=== PATIENT | male | born 1940 | race Caucasian/White ===

== ENCOUNTER 2019-03-08 10:46 | Inpatient (IN) | payer MEDICARE, BC ==
[2019-03-08 11:13] LABS: WHITE BLOOD COUNT 1.6 10^3/ul (4.8-10.8)
[2019-03-08 11:13] LABS: ABNORMAL IP MESSAGE 1; HEMATOCRIT 31.6 % (42.0-52.0); HEMOGLOBIN 9.9 g/dl (14.0-18.0); MEAN CORPUSCULAR HEMOGLOBIN 28.9 pg (29.0-33.0); MEAN CORPUSCULAR HGB CONC 31.3 g/dl (32.0-37.0); MEAN CORPUSCULAR VOLUME 92.4 fl (82.0-101.0); MEAN PLATELET VOLUME 10.5 fl (7.4-10.4); PLATELET COUNT 289 10^3/UL (140-415); POSITIVE DIFF @See below; RED BLOOD COUNT 3.42 10^6/ul (4.70-6.10); RED CELL DISTRIBUTION WIDTH 14.9 % (11.5-14.5)
[2019-03-08] MEDS: SODIUM CHLORIDE 0.9% 1L BAG IV* (11:16)
[2019-03-08] MEDS: CEFEPIME 2GM/50 ML (PMX) 50 ML IVPB (11:17)
[2019-03-08 11:18] LABS: ADD MAN DIFF? YES
[2019-03-08 11:42] LABS: ALANINE AMINOTRANSFERASE 23 IU/L (13-69); ALBUMIN 3.1 g/dl (3.3-4.9); ALBUMIN/GLOBULIN RATIO 0.83; ALKALINE PHOSPHATASE 223 IU/L (42-121); ANION GAP 12 (5-13); ASPARTATE AMINO TRANSFERASE 49 IU/L (15-46); BILIRUBIN,INDIRECT 0.3 mg/dl (0-1.1); BILIRUBIN,TOTAL 0.3 mg/dl (0.2-1.3); BLOOD UREA NITROGEN 27 mg/dl (7-20); CALCIUM 9.3 mg/dl (8.4-10.2); CARBON DIOXIDE 20 mmol/L (21-31); CHLORIDE 105 mmol/L (97-110); CREATININE 1.07 mg/dl (0.61-1.24); GLUCOSE 189 mg/dl (70-220); POTASSIUM 4.1 mmol/L (3.5-5.1); SODIUM 137 mmol/L (135-144); TOTAL PROTEIN 6.8 g/dl (6.1-8.1)
[2019-03-08] MEDS: VANCOMYCIN 1 GM (PMX) 250 ML IVPB (11:47)
[2019-03-08 11:52] LABS: BAND NEUTROPHILS #M 0.4 10^3/ul (0.0-0.6); BAND NEUTROPHILS % (M) 31 % (0-4); BASOPHILS % (M) 2 % (0-2); BURR CELLS 1+ (0-0); GIANT THROMBO% (M) 7 % (0-0); LYMPHOCYTES #M 0.2 10^3/ul (0.8-2.9); LYMPHOCYTES % (M) 13 % (15-51); MONOCYTES % (M) 5 % (0-11); OVALOCYTES 2+ (0-0); PLATELET ESTIMATE NORMAL; POIKILOCYTOSIS 2+ (0-0); POLYCHROMASIA 1+ (0-0); SEG NEUT #M 0.8 10^3/ul (1.6-7.5); SEGMENTED NEUTROPHILS (M) % 49 % (39-77); SMUDGE%M 4 % (0-0)
[2019-03-08 11:54] LABS: TROPONIN-I 0.021 ng/ml (0.000-0.120)
[2019-03-08 12:02] LABS: INR 1.31; PROTIME 16.4 Sec (11.9-14.9); PT RATIO 1.3
[2019-03-08 12:03] LABS: PARTIAL THROMBOPLASTIN TIME 36.5 Sec (23.0-35.0)
[2019-03-08] MEDS ORDERED: ACETAMINOPHEN 325 MG TAB PO ×2 (13:00→16:30)
[2019-03-08] MEDS ORDERED: ACETAMINOPHEN 650 MG SUPP PR (16:30)
[2019-03-08] MEDS ORDERED: NACL 0.9% 3 ML SYG IV (16:30)
[2019-03-08] MEDS ORDERED: BISACODYL 10 MG SUPP PR (16:30)
[2019-03-08] MEDS ORDERED: ONDANSETRON 4 MG INJ IV (16:30)
[2019-03-08] MEDS ORDERED: NA PHOSPHATE/BIPHOS 133 ML ENEMA PR (16:30)
[2019-03-08] MEDS ORDERED: DOCUSATE SODIUM 100 MG CAP PO (16:30)
[2019-03-08] MEDS ORDERED: BISACODYL (EC) 5 MG TAB PO (16:30)
[2019-03-08] MEDS: DEXTROSE 5%-0.45% NACL 1,000 ML IV (16:57)
[2019-03-08] MEDS: METOCLOPRAMIDE 10 MG TAB PO (17:22)
[2019-03-08 17:33] LABS: LACTIC ACID 2.5 mmol/L (0.5-2.0)
[2019-03-08] MEDS: PANTOPRAZOLE (EC) 40 MG TAB PO (20:47)
[2019-03-08] MEDS: TAMSULOSIN (SR) 0.4 MG CAP PO (20:47)
[2019-03-08] MEDS: SUCRALFATE (100 MG/ML) 10ML CUP PO (20:47)
[2019-03-08] MEDS ORDERED: FAMOTIDINE 20 MG TAB PO (21:00)
[2019-03-09] MEDS: DEXTROSE 5%-0.45% NACL 1,000 ML IV ×2 (02:23→11:31)
[2019-03-09 06:23] LABS: ABNORMAL IP MESSAGE 1; HEMATOCRIT 25.5 % (42.0-52.0); HEMOGLOBIN 8.2 g/dl (14.0-18.0); MEAN CORPUSCULAR HEMOGLOBIN 28.6 pg (29.0-33.0); MEAN CORPUSCULAR HGB CONC 32.2 g/dl (32.0-37.0); MEAN CORPUSCULAR VOLUME 88.9 fl (82.0-101.0); MEAN PLATELET VOLUME 10.8 fl (7.4-10.4); PLATELET COUNT 227 10^3/UL (140-415); POSITIVE DIFF @See below; RED BLOOD COUNT 2.87 10^6/ul (4.70-6.10); RED CELL DISTRIBUTION WIDTH 14.7 % (11.5-14.5)
[2019-03-09 06:23] LABS: WHITE BLOOD COUNT 6.9 10^3/ul (4.8-10.8)
[2019-03-09 06:50] LABS: ADD MAN DIFF? YES
[2019-03-09 06:55] LABS: ALANINE AMINOTRANSFERASE 27 IU/L (13-69); ALBUMIN 2.1 g/dl (3.3-4.9); ALBUMIN/GLOBULIN RATIO 0.65; ALKALINE PHOSPHATASE 143 IU/L (42-121); ANION GAP 6 (5-13); ASPARTATE AMINO TRANSFERASE 33 IU/L (15-46); BILIRUBIN,INDIRECT 0.4 mg/dl (0-1.1); BILIRUBIN,TOTAL 0.4 mg/dl (0.2-1.3); BLOOD UREA NITROGEN 28 mg/dl (7-20); CALCIUM 8.1 mg/dl (8.4-10.2); CARBON DIOXIDE 24 mmol/L (21-31); CHLORIDE 106 mmol/L (97-110); CREATININE 0.73 mg/dl (0.61-1.24); GLUCOSE 185 mg/dl (70-220); PHOSPHORUS 3.4 mg/dl (2.5-4.9); POTASSIUM 3.4 mmol/L (3.5-5.1); SODIUM 136 mmol/L (135-144); TOTAL PROTEIN 5.3 g/dl (6.1-8.1)
[2019-03-09 08:08] LABS: HEMOGLOBIN A1C 6.4 % (0-5.9)
[2019-03-09] MEDS: SUCRALFATE (100 MG/ML) 10ML CUP PO ×3 (08:42→20:15)
[2019-03-09] MEDS: AMIODARONE 200 MG TAB PO (08:43)
[2019-03-09] MEDS: PANTOPRAZOLE (EC) 40 MG TAB PO ×2 (08:44→20:15)
[2019-03-09] MEDS: METOCLOPRAMIDE 10 MG TAB PO ×3 (08:44→17:27)
[2019-03-09] MEDS: DUTASTERIDE 0.5 MG CAP PO (08:44)
[2019-03-09] MEDS: ENOXAPARIN 30 MG/0.3 ML SYG SC (09:01)
[2019-03-09] MEDS: MEGESTROL (40 MG/ML) 10ML CUP PO (09:19)
[2019-03-09 11:07] LABS: ANISOCYTOSIS 3+ (0-0); BAND NEUTROPHILS #M 4.8 10^3/ul (0.0-0.6); BAND NEUTROPHILS % (M) 71 % (0-4); EOSINOPHILS % (M) 1 % (0-7); LYMPHOCYTES #M 0.6 10^3/ul (0.8-2.9); LYMPHOCYTES % (M) 9 % (15-51); METAMYELOCYTES %M 1 % (0-0); MONOCYTES % (M) 1 % (0-11); MYELOCYTES #M 0.1 10^3/ul (0.0-0.0); MYELOCYTES % (M) 2 % (0-0); PLATELET ESTIMATE NORMAL; POIKILOCYTOSIS 2+ (0-0); POLYCHROMASIA 3+ (0-0); SEG NEUT #M 1.4 10^3/ul (1.6-7.5); SEGMENTED NEUTROPHILS (M) % 15 % (39-77); SMUDGE%M 10 % (0-0)
[2019-03-09] MEDS: morphine 2 MG INJ IV (12:40)
[2019-03-09] MEDS: MAGNESIUM SULFATE 4 GM/100 ML 100 ML IVPB (12:48)
[2019-03-09] MEDS ORDERED: VANCOMYCIN IV PER PHARMACY XX (14:00)
[2019-03-09] MEDS: PIPER-TAZO 2.25 GM (PMX) 50 ML IVPB ×3 (14:22→23:50)
[2019-03-09] MEDS ORDERED: VANCOMYCIN 750 MG (PMX) 250 ML IVPB (15:00)
[2019-03-09] MEDS: VANCOMYCIN 750 MG (PMX) 250 ML IVPB (15:47)
[2019-03-09] MEDS: POTASSIUM CHLORIDE 20 MEQ POWDER FOR ORAL SOLN PO (17:27)
[2019-03-09] MEDS: POTASSIUM CHLORIDE 100 ML IVPB (18:14)
[2019-03-09] MEDS: TAMSULOSIN (SR) 0.4 MG CAP PO (20:15)
[2019-03-10 02:12] LABS: AADO2 Arterial 625.6 mmHg (7.0-24.0); Allen Test ACCEPTAB; Arterial Blood Gas Oxygen Sat 88.8 mmHG (95.0-100.0); Arterial COHb 0 % (0.0-3.0); Arterial Fraction of Oxyhgb 88.5 % (93.0-99.0); Arterial HCO3 18.8 mmol/L (22.0-26.0); Arterial MetHb 0.3 % (0.0-1.5); Arterial pCO2 30.1 mmhg (35-45); MODE MASK - NRB; Site Left Radial
[2019-03-10] MEDS ORDERED: VANCOMYCIN IV PER PHARMACY XX (03:30)
[2019-03-10] MEDS ORDERED: PIPER-TAZO 3.375 GM IV (PMX) 100 ML IVPB (03:30)
[2019-03-10 04:00] LABS: ADD MAN DIFF? NO
[2019-03-10 04:18] LABS: WHITE BLOOD COUNT 5.6 10^3/ul (4.8-10.8)
[2019-03-10 04:18] LABS: ABNORMAL IP MESSAGE 1; BASOPHILS % 0.4 % (0.0-2.0); HEMATOCRIT 25.6 % (42.0-52.0); HEMOGLOBIN 8.3 g/dl (14.0-18.0); LYMPHOCYTES # 0.3 10^3/ul (0.8-2.9); LYMPHOCYTES % 5.6 % (15.0-51.0); MEAN CORPUSCULAR HEMOGLOBIN 28.5 pg (29.0-33.0); MEAN CORPUSCULAR HGB CONC 32.4 g/dl (32.0-37.0); MONOCYTE # 0.2 10^3/ul (0.3-0.9); MONOCYTES % 3.8 % (0.0-11.0); NEUTROPHILS % 89.7 % (39.0-77.0); PLATELET COUNT 231 10^3/UL (140-415); POSITIVE DIFF @See below; RED BLOOD COUNT 2.91 10^6/ul (4.70-6.10); RED CELL DISTRIBUTION WIDTH 14.7 % (11.5-14.5)
[2019-03-10 04:26] LABS: ANION GAP 8 (5-13); BLOOD UREA NITROGEN 26 mg/dl (7-20); CALCIUM 8.5 mg/dl (8.4-10.2); CARBON DIOXIDE 20 mmol/L (21-31); CHLORIDE 108 mmol/L (97-110); CREATININE 0.69 mg/dl (0.61-1.24); GLUCOSE 88 mg/dl (70-220); MAGNESIUM 2.3 mg/dl (1.7-2.5); POTASSIUM 3.1 mmol/L (3.5-5.1); SODIUM 136 mmol/L (135-144)
[2019-03-10 04:26] LABS: PHOSPHORUS 3.7 mg/dl (2.5-4.9)
[2019-03-10 04:44] LABS: FREE T4 (FREE THYROXINE) 1.61 ng/dl (0.85-1.93)
[2019-03-10 04:58] LABS: TRIIODOTHYRONINE 0.33 ng/ml (0.97-1.69)
[2019-03-10] MEDS: PIPER-TAZO 2.25 GM (PMX) 50 ML IVPB ×3 (05:35→20:00)
[2019-03-10 07:10] LABS: ANISOCYTOSIS 1+ (0-0); BAND NEUTROPHILS #M 2.8 10^3/ul (0.0-0.6); BAND NEUTROPHILS % (M) 50 % (0-4); BURR CELLS 2+ (0-0); LYMPHOCYTES #M 0.3 10^3/ul (0.8-2.9); LYMPHOCYTES % (M) 7 % (15-51); OVALOCYTES 1+ (0-0); PLATELET ESTIMATE NORMAL; POIKILOCYTOSIS 2+ (0-0); POLYCHROMASIA 3+ (0-0); SEG NEUT #M 2.6 10^3/ul (1.6-7.5); SEGMENTED NEUTROPHILS (M) % 43 % (39-77); SMUDGE%M 3 % (0-0)
[2019-03-10] MEDS: DEXTROSE 5%-0.45% NACL 1,000 ML IV (08:23)
[2019-03-10] MEDS: SUCRALFATE (100 MG/ML) 10ML CUP PO ×3 (08:51→20:02)
[2019-03-10] MEDS: MEGESTROL (40 MG/ML) 10ML CUP PO (08:51)
[2019-03-10] MEDS: POTASSIUM CHLORIDE 20 MEQ POWDER FOR ORAL SOLN PO (08:51)
[2019-03-10] MEDS: AMIODARONE 200 MG TAB PO (08:52)
[2019-03-10] MEDS: DUTASTERIDE 0.5 MG CAP PO (08:52)
[2019-03-10] MEDS: PANTOPRAZOLE (EC) 40 MG TAB PO ×2 (08:52→20:03)
[2019-03-10] MEDS: METOCLOPRAMIDE 10 MG TAB PO ×3 (08:53→17:05)
[2019-03-10] MEDS: ENOXAPARIN 30 MG/0.3 ML SYG SC (09:22)
[2019-03-10 10:25] LABS: AADO2 Arterial 636.5 mmHg (7.0-24.0); Allen Test ACCEPTAB; Arterial Base Excess -8.3 mmol/L (-3.0-3); Arterial Blood Gas Oxygen Sat 82.4 mmHG (95.0-100.0); Arterial COHb 0.4 % (0.0-3.0); Arterial HCO3 15.9 mmol/L (22.0-26.0); Arterial MetHb 0.1 % (0.0-1.5); MODE MASK - NRB; Site Right Radial
[2019-03-10] MEDS ORDERED: DIPHENHYDRAMINE 50 MG INJ (10:28)
[2019-03-10] MEDS: DIPHENHYDRAMINE 50 MG INJ IV (10:51)
[2019-03-10] MEDS: POTASSIUM CHLORIDE 100 ML IVPB ×2 (10:51→12:04)
[2019-03-10] MEDS: morphine 2 MG INJ IV ×2 (13:29→17:40)
[2019-03-10 14:21] LABS: AADO2 Arterial 622.9 mmHg (7.0-24.0); Allen Test ACCEPTAB; Arterial Base Excess -9.2 mmol/L (-3.0-3); Arterial Blood Gas Oxygen Sat 91.4 mmHG (95.0-100.0); Arterial COHb 0.1 % (0.0-3.0); Arterial Fraction of Oxyhgb 91.3 % (93.0-99.0); Arterial HCO3 14.7 mmol/L (22.0-26.0); Arterial MetHb 0 % (0.0-1.5); Arterial pCO2 25.8 mmhg (35-45); MODE HFNC; Site Right Radial
[2019-03-10] MEDS: VANCOMYCIN 500 MG (PMX) 100 ML IVPB (15:17)
[2019-03-10 19:20] LABS: AADO2 Arterial 611.5 mmHg (7.0-24.0); Allen Test ACCEPTAB; Arterial Base Excess -9.3 mmol/L (-3.0-3); Arterial Blood Gas Oxygen Sat 90.8 mmHG (95.0-100.0); Arterial COHb 0.3 % (0.0-3.0); Arterial Fraction of Oxyhgb 90.3 % (93.0-99.0); Arterial HCO3 16.1 mmol/L (22.0-26.0); Arterial MetHb 0.3 % (0.0-1.5); MODE HFNC; Site Left Radial
[2019-03-10] MEDS: TAMSULOSIN (SR) 0.4 MG CAP PO (20:02)
[2019-03-10] MEDS: DEXTROSE 5%-0.45% NACL 500 ML BAG IV* (21:08)
[2019-03-10 21:45] LABS: AADO2 Arterial 612.9 mmHg (7.0-24.0); Arterial Base Excess -11.1 mmol/L (-3.0-3); Arterial Blood Gas Oxygen Sat 79.9 mmHG (95.0-100.0); Arterial COHb 0.1 % (0.0-3.0); Arterial Fraction of Oxyhgb 79.7 % (93.0-99.0); Arterial HCO3 16.6 mmol/L (22.0-26.0); Arterial MetHb 0.1 % (0.0-1.5); Arterial pCO2 45.1 mmhg (35-45); MODE VENT - AC; Site LB
[2019-03-10] MEDS: ETOMIDATE 20 MG INJ IV (22:09)
[2019-03-11] MEDS: PIPER-TAZO 2.25 GM (PMX) 50 ML IVPB ×5 (00:48→23:43)
[2019-03-11] MEDS: DEXTROSE 5%-0.45% NACL 500 ML BAG IV* ×2 (00:51→05:33)
[2019-03-11] MEDS: NORepinephrine 8MG/250 ML (PMX 250 ML IV ×3 (01:01→23:36)
[2019-03-11] MEDS: DEXTROSE 5%-0.45% NACL 1,000 ML IV (02:52)
[2019-03-11] MEDS ORDERED: NA POLYST SULFON 15 GM/60 ML BTL (05:01)
[2019-03-11 05:32] LABS: ADD MAN DIFF? NO
[2019-03-11] MEDS: ALBUMIN HUMAN 25% 100 ML IV (05:34)
[2019-03-11 05:44] LABS: ABNORMAL IP MESSAGE 1; BASOPHILS % 0.2 % (0.0-2.0); HEMATOCRIT 30.2 % (42.0-52.0); HEMOGLOBIN 9.3 g/dl (14.0-18.0); LYMPHOCYTES # 0.4 10^3/ul (0.8-2.9); LYMPHOCYTES % 7.8 % (15.0-51.0); MEAN CORPUSCULAR HEMOGLOBIN 28.6 pg (29.0-33.0); MEAN CORPUSCULAR HGB CONC 30.8 g/dl (32.0-37.0); MEAN CORPUSCULAR VOLUME 92.9 fl (82.0-101.0); MONOCYTE # 0.2 10^3/ul (0.3-0.9); MONOCYTES % 4.3 % (0.0-11.0); NEUTROPHILS % 87.3 % (39.0-77.0); PLATELET COUNT 230 10^3/UL (140-415); POSITIVE DIFF @See below; RED BLOOD COUNT 3.25 10^6/ul (4.70-6.10); RED CELL DISTRIBUTION WIDTH 15.3 % (11.5-14.5)
[2019-03-11 05:44] LABS: WHITE BLOOD COUNT 4.6 10^3/ul (4.8-10.8)
[2019-03-11 06:06] LABS: ANION GAP 9 (5-13); BLOOD UREA NITROGEN 33 mg/dl (7-20); CALCIUM 8.7 mg/dl (8.4-10.2); CARBON DIOXIDE 20 mmol/L (21-31); CHLORIDE 108 mmol/L (97-110); CREATININE 1.18 mg/dl (0.61-1.24); PHOSPHORUS 6.4 mg/dl (2.5-4.9); POTASSIUM 4.1 mmol/L (3.5-5.1); SODIUM 137 mmol/L (135-144)
[2019-03-11 07:29] LABS: Allen Test ACCEPTAB; Arterial Base Excess -10.1 mmol/L (-3.0-3); Arterial Blood Gas Oxygen Sat 91.5 mmHG (95.0-100.0); Arterial COHb 0.6 % (0.0-3.0); Arterial Fraction of Oxyhgb 90.8 % (93.0-99.0); Arterial HCO3 18.3 mmol/L (22.0-26.0); Arterial MetHb 0.2 % (0.0-1.5); Arterial pCO2 53.7 mmhg (35-45); MODE VENT - AC; Site Right Radial
[2019-03-11 07:57] LABS: GLUCOSE 309 mg/dl (70-220)
[2019-03-11] MEDS: DUTASTERIDE 0.5 MG CAP PO (09:00)
[2019-03-11] MEDS: MIDAZOLAM (DRIP) 50 mg/50 mL 50 ML IV (09:11)
[2019-03-11] MEDS ORDERED: NA BICARBONATE 8.4% 50 ML SYG (09:19)
[2019-03-11] MEDS: SUCRALFATE (100 MG/ML) 10ML CUP PO ×3 (09:33→20:08)
[2019-03-11] MEDS: AMIODARONE 200 MG TAB PO (09:33)
[2019-03-11] MEDS: PANTOPRAZOLE (EC) 40 MG TAB PO ×2 (09:33→20:08)
[2019-03-11] MEDS: POTASSIUM CHLORIDE 20 MEQ POWDER FOR ORAL SOLN PO (09:34)
[2019-03-11] MEDS: ENOXAPARIN 30 MG/0.3 ML SYG SC (09:38)
[2019-03-11] MEDS: NA BICARBONATE 8.4% 50 ML SYG IV ×2 (09:40→09:41)
[2019-03-11] MEDS: METOCLOPRAMIDE 10 MG TAB PO ×3 (09:40→17:09)
[2019-03-11] MEDS: MEGESTROL (40 MG/ML) 10ML CUP PO (10:51)
[2019-03-11] MEDS: SODIUM BICARBONATE (IV ADD) 100 MEQ in DEXTROSE 5% 900 ML IV (10:52)
[2019-03-11 11:19] LABS: AADO2 Arterial 605.9 mmHg (7.0-24.0); Allen Test ACCEPTAB; Arterial Base Excess -5.9 mmol/L (-3.0-3); Arterial Blood Gas Oxygen Sat 86.9 mmHG (95.0-100.0); Arterial COHb 0.4 % (0.0-3.0); Arterial Fraction of Oxyhgb 86.6 % (93.0-99.0); Arterial HCO3 21.2 mmol/L (22.0-26.0); Arterial MetHb 0 % (0.0-1.5); Arterial pCO2 50.1 mmhg (35-45); MODE VENT - AC; Site Right Radial
[2019-03-11] MEDS: PHENYLephrine 40 MG in DEXTROSE 5% 246 ML IV (19:52)
[2019-03-11] MEDS: TAMSULOSIN (SR) 0.4 MG CAP PO (20:08)
[2019-03-12] MEDS: SODIUM BICARBONATE (IV ADD) 100 MEQ in DEXTROSE 5% 900 ML IV ×2 (00:58→14:25)
[2019-03-12] MEDS: PHENYLephrine 40 MG in DEXTROSE 5% 246 ML IV ×5 (00:59→22:02)
[2019-03-12 05:28] LABS: ABNORMAL IP MESSAGE 1; HEMATOCRIT 29.2 % (42.0-52.0); HEMOGLOBIN 8.8 g/dl (14.0-18.0); MEAN CORPUSCULAR HEMOGLOBIN 27.8 pg (29.0-33.0); MEAN CORPUSCULAR HGB CONC 30.1 g/dl (32.0-37.0); MEAN CORPUSCULAR VOLUME 92.4 fl (82.0-101.0); PLATELET COUNT 215 10^3/UL (140-415); POSITIVE DIFF @See below; RED BLOOD COUNT 3.16 10^6/ul (4.70-6.10); RED CELL DISTRIBUTION WIDTH 15.6 % (11.5-14.5)
[2019-03-12 05:28] LABS: WHITE BLOOD COUNT 3.4 10^3/ul (4.8-10.8)
[2019-03-12 05:36] LABS: ANION GAP 9 (5-13); BLOOD UREA NITROGEN 39 mg/dl (7-20); CALCIUM 8.3 mg/dl (8.4-10.2); CARBON DIOXIDE 23 mmol/L (21-31); CHLORIDE 103 mmol/L (97-110); CREATININE 1.33 mg/dl (0.61-1.24); GLUCOSE 330 mg/dl (70-220); POTASSIUM 4.5 mmol/L (3.5-5.1); SODIUM 135 mmol/L (135-144)
[2019-03-12] MEDS: PIPER-TAZO 2.25 GM (PMX) 50 ML IVPB ×4 (05:38→23:30)
[2019-03-12 05:40] LABS: VANCOMYCIN,RANDOM 10.3 ug/ml
[2019-03-12 06:00] LABS: ADD MAN DIFF? YES
[2019-03-12] MEDS ORDERED: DEXTROSE 50% 50 ML SYRINGE IV ×2 (07:00)
[2019-03-12] MEDS ORDERED: GLUCOSE GEL 15 GRAM TUBE PO ×2 (07:00)
[2019-03-12] MEDS ORDERED: GLUCAGON 1 MG INJ IM (07:00)
[2019-03-12] MEDS ORDERED: GLUCOSE GEL 15 GRAM TUBE BUCCAL (07:00)
[2019-03-12] MEDS: NORepinephrine 8MG/250 ML (PMX 250 ML IV ×2 (07:18→13:55)
[2019-03-12] MEDS: DUTASTERIDE 0.5 MG CAP PO (09:00)
[2019-03-12] MEDS: POTASSIUM CHLORIDE 20 MEQ POWDER FOR ORAL SOLN PO (09:00)
[2019-03-12 09:29] LABS: ANISOCYTOSIS 1+ (0-0); BAND NEUTROPHILS #M 1.1 10^3/ul (0.0-0.6); BAND NEUTROPHILS % (M) 33 % (0-4); BURR CELLS 3+ (0-0); EOSINOPHILS % (M) 2 % (0-7); GIANT THROMBO% (M) 1 % (0-0); LYMPHOCYTES #M 0.6 10^3/ul (0.8-2.9); LYMPHOCYTES % (M) 18 % (15-51); METAMYELOCYTES %M 1 % (0-0); MONOCYTE #M 0.1 10^3/ul (0.3-0.9); MONOCYTES % (M) 5 % (0-11); OVALOCYTES 1+ (0-0); PLATELET ESTIMATE NORMAL; POLYCHROMASIA 1+ (0-0); REACTIVE LYMPHOCYTES% (M) 1 % (0-0); SEG NEUT #M 1.4 10^3/ul (1.6-7.5); SEGMENTED NEUTROPHILS (M) % 40 % (39-77); SMUDGE%M 3 % (0-0)
[2019-03-12] MEDS: PANTOPRAZOLE (EC) 40 MG TAB PO ×2 (09:38→21:03)
[2019-03-12] MEDS: SUCRALFATE (100 MG/ML) 10ML CUP PO ×3 (09:39→21:03)
[2019-03-12] MEDS: MEGESTROL (40 MG/ML) 10ML CUP PO (09:39)
[2019-03-12] MEDS: AMIODARONE 200 MG TAB PO (09:39)
[2019-03-12] MEDS: METOCLOPRAMIDE 10 MG TAB PO ×3 (09:39→17:26)
[2019-03-12] MEDS: ENOXAPARIN 30 MG/0.3 ML SYG SC (09:45)
[2019-03-12] MEDS: INSULIN ASPART [NOVOLOG] 3 ML PEN SC ×4 (09:54→21:06)
[2019-03-12] MEDS: morphine 2 MG INJ IV ×2 (10:25→15:46)
[2019-03-12] MEDS: MIDAZOLAM (DRIP) 50 mg/50 mL 50 ML IV ×2 (11:23→18:40)
[2019-03-12] MEDS: VANCOMYCIN 500 MG (PMX) 100 ML IVPB (11:40)
[2019-03-12] MEDS: VASOPRESSIN 60 UNIT in DEXTROSE 5% 57 ML IV (12:36)
[2019-03-12 14:15] LABS: UR BACTERIA FEW /HPF (NONE SEEN); UR BUDDING YEAST MANY /HPF (NONE SEEN); UR MUCUS FEW /HPF (NONE SEEN); UR NONSQUAMOUS EPITHELIAL CELL 1 /HPF (NONE SEEN); UR RBC 30 /HPF (0-5); UR SQUAMOUS EPITHELIAL CELL FEW /HPF (FEW); UR WBC 110 /HPF (0-5)
[2019-03-12 14:21] LABS: ADD UMIC YES; UR ASCORBIC ACID NEGATIVE (NEGATIVE); UR BILIRUBIN (Dip) NEGATIVE (NEGATIVE); UR BLOOD (Dip) 2+ mg/dL (NEGATIVE); UR CLARITY TURBID (CLEAR); UR COLOR AMBER (YELLOW); UR GLUCOSE (Dip) NEGATIVE (NEGATIVE); UR KETONES (Dip) NEGATIVE (NEGATIVE); UR LEUKOCYTE ESTERASE (Dip) 3+ Leu/ul (NEGATIVE); UR NITRITE (Dip) NEGATIVE (NEGATIVE); UR SPECIFIC GRAVITY (Dip) 1.023 (1.003-1.030); UR TOTAL PROTEIN (Dip) 1+ mg/dl (NEGATIVE); UR UROBILINOGEN (Dip) NEGATIVE (NEGATIVE)
[2019-03-12] MEDS: FENTAnyl (DRIP) 1000 mcg/100mL 100 ML IV (16:11)
[2019-03-12] MEDS: TAMSULOSIN (SR) 0.4 MG CAP PO (21:03)
[2019-03-12] MEDS: INSULIN GLARGINE [LANTus] (100 UNITS/ML) SYG SC (22:02)
[2019-03-13] MEDS: INSULIN ASPART [NOVOLOG] 3 ML PEN SC ×4 (01:08→13:00)
[2019-03-13] MEDS: NORepinephrine 8MG/250 ML (PMX 250 ML IV ×2 (02:01→10:36)
[2019-03-13] MEDS: VASOPRESSIN 60 UNIT in DEXTROSE 5% 57 ML IV ×2 (02:04→04:18)
[2019-03-13] MEDS: PHENYLephrine 40 MG in DEXTROSE 5% 246 ML IV ×4 (02:26→15:30)
[2019-03-13] MEDS: SODIUM BICARBONATE (IV ADD) 100 MEQ in DEXTROSE 5% 900 ML IV ×2 (03:55→16:20)
[2019-03-13] MEDS: MIDAZOLAM (DRIP) 50 mg/50 mL 50 ML IV (04:58)
[2019-03-13 05:20] LABS: Allen Test ACCEPTAB; Arterial Base Excess -5.2 mmol/L (-3.0-3); Arterial Blood Gas Oxygen Sat 96.6 mmHG (95.0-100.0); Arterial COHb 0.4 % (0.0-3.0); Arterial Fraction of Oxyhgb 95.9 % (93.0-99.0); Arterial HCO3 25.3 mmol/L (22.0-26.0); Arterial MetHb 0.3 % (0.0-1.5); Arterial pCO2 84.3 mmhg (35-45); MODE VENT - AC; Site Right Radial
[2019-03-13] MEDS: PIPER-TAZO 2.25 GM (PMX) 50 ML IVPB ×2 (05:51→12:00)
[2019-03-13 06:10] LABS: ANION GAP 7 (5-13); BLOOD UREA NITROGEN 41 mg/dl (7-20); CALCIUM 7.6 mg/dl (8.4-10.2); CARBON DIOXIDE 25 mmol/L (21-31); CHLORIDE 95 mmol/L (97-110); CREATININE 1.56 mg/dl (0.61-1.24); GLUCOSE 209 mg/dl (70-220); POTASSIUM 4.1 mmol/L (3.5-5.1); SODIUM 127 mmol/L (135-144)
[2019-03-13] MEDS: METOCLOPRAMIDE 10 MG TAB PO ×2 (06:39→11:00)
[2019-03-13 06:56] LABS: ABNORMAL IP MESSAGE 1; HEMATOCRIT 27.7 % (42.0-52.0); HEMOGLOBIN 8.2 g/dl (14.0-18.0); MEAN CORPUSCULAR HEMOGLOBIN 28.1 pg (29.0-33.0); MEAN CORPUSCULAR HGB CONC 29.6 g/dl (32.0-37.0); MEAN CORPUSCULAR VOLUME 94.9 fl (82.0-101.0); MEAN PLATELET VOLUME 11.6 fl (7.4-10.4); PLATELET COUNT 134 10^3/UL (140-415); POSITIVE DIFF @See below; RED BLOOD COUNT 2.92 10^6/ul (4.70-6.10); RED CELL DISTRIBUTION WIDTH 15.9 % (11.5-14.5)
[2019-03-13 06:56] LABS: WHITE BLOOD COUNT 7.1 10^3/ul (4.8-10.8)
[2019-03-13 07:03] LABS: ADD MAN DIFF? YES
[2019-03-13 08:17] LABS: ANISOCYTOSIS 1+ (0-0); BAND NEUTROPHILS #M 2.3 10^3/ul (0.0-0.6); BAND NEUTROPHILS % (M) 33 % (0-4); BURR CELLS 3+ (0-0); ELLIPTO 1+ (0-0); EOSINOPHILS % (M) 3 % (0-7); GIANT THROMBO% (M) 2 % (0-0); LYMPHOCYTES #M 0.9 10^3/ul (0.8-2.9); LYMPHOCYTES % (M) 13 % (15-51); MONOCYTE #M 0.2 10^3/ul (0.3-0.9); MONOCYTES % (M) 3 % (0-11); OVALOCYTES 1+ (0-0); PLATELET ESTIMATE NORMAL; POIKILOCYTOSIS 3+ (0-0); POLYCHROMASIA 3+ (0-0); SCHISTOCYTES 1+ (0-0); SEG NEUT #M 3.6 10^3/ul (1.6-7.5); SEGMENTED NEUTROPHILS (M) % 49 % (39-77); SMUDGE%M 5 % (0-0)
[2019-03-13] MEDS: SUCRALFATE (100 MG/ML) 10ML CUP PO ×2 (09:38→13:00)
[2019-03-13] MEDS: POTASSIUM CHLORIDE 20 MEQ POWDER FOR ORAL SOLN PO (09:39)
[2019-03-13] MEDS: DUTASTERIDE 0.5 MG CAP PO (09:39)
[2019-03-13] MEDS: MEGESTROL (40 MG/ML) 10ML CUP PO (09:39)
[2019-03-13] MEDS: LANSOPRAZOLE (SOLTAB) 30 MG TAB GTB (09:40)
[2019-03-13] MEDS: AMIODARONE 200 MG TAB PO (09:40)
[2019-03-13] MEDS: ENOXAPARIN 30 MG/0.3 ML SYG SC (09:42)
[2019-03-13] MEDS ORDERED: LORAZEPAM 2 MG INJ IV (14:30)
[2019-03-13] MEDS: MAGNESIUM SULFATE 2 GM/50 ML 50 ML IVPB (14:32)
[2019-03-13] MEDS: morphine (DRIP) 100 MG/100 ML 100 ML IV (16:21)
== END 2019-03-13 17:25 | disposition expired | DRG 871 ==
LOC: TEL 03-09 05:00 → ICU 03-10 09:32 → E/R 10:46 → TEL 03-09 18:15
PROVIDERS: Internal Medicine
PROC: 5A1945Z Respiratory Ventilation, 24-96 Consecutive Hours (ICD-10-PCS; principal; 2019-03-10)
PROC: 0BH17EZ Insertion of Endotracheal Airway into Trachea, Via Natural or Artificial Opening (ICD-10-PCS; 2019-03-10)
DX: A41.9 Sepsis, unspecified organism (principal); J69.0 Pneumonitis due to inhalation of food and vomit; J96.01 Acute respiratory failure with hypoxia; E43 Unspecified severe protein-calorie malnutrition; N17.0 Acute kidney failure with tubular necrosis; R65.21 Severe sepsis with septic shock; C25.9 Malignant neoplasm of pancreas, unspecified; E46 Unspecified protein-calorie malnutrition; E87.4 Mixed disorder of acid-base balance; C79.9 Secondary malignant neoplasm of unspecified site; R64 Cachexia; Z68.1 Body mass index [BMI] 19.9 or less, adult; Z66 Do not resuscitate; D64.9 Anemia, unspecified; E11.9 Type 2 diabetes mellitus without complications; R62.7 Adult failure to thrive; I25.10 Atherosclerotic heart disease of native coronary artery without angina pectoris; I48.91 Unspecified atrial fibrillation; K29.70 Gastritis, unspecified, without bleeding; K20.9 Esophagitis, unspecified; N40.0 Benign prostatic hyperplasia without lower urinary tract symptoms; Z92.21 Personal history of antineoplastic chemotherapy; Z92.3 Personal history of irradiation; Z95.1 Presence of aortocoronary bypass graft; Z87.891 Personal history of nicotine dependence; Z79.4 Long term (current) use of insulin
CPT/HCPCS: 31500; 36415; 36600; 71045; 80048; 80053; 80202; 81001; 82306; 82803; 82962; 83036; 83605; 83735; 84100; 84439; 84443; 84480; 84484; 85025; 85610; 85730; 87040-91; 87081; 87086; 93005; 94002; 94003; 94770; 96365; 96375; 97161; 99285-25